=== PATIENT | female | born 1995 | race African-American/Black ===

== ENCOUNTER 2017-03-11 23:04 | Emergency (ER) | payer MEDICAID ==
[~2017-03-11] VITALS: Ht 162.6 cm; Wt 66.7 kg
[2017-03-11 23:05] VITALS: BP 127/88
== END 2017-03-11 23:20 ==
LOC: ED 23:13
DX: R30.0 Dysuria (principal); Z53.21 Procedure and treatment not carried out due to patient leaving prior to being seen by health care provider

== ENCOUNTER 2017-04-07 13:48 | Outpatient (CLI) | payer MEDICAID ==
[~2017-04-07] VITALS: Ht 162.6 cm; Wt 65.0 kg
[2017-04-07] MEDS ORDERED: ONDANSETRON 2MG/ML, 2ML IVPush PRN (15:30)
[2017-04-07] MEDS ORDERED: LACTATED RINGERS 1,000 ML IVBOLUS ONE (15:30)
[2017-04-07] MEDS ORDERED: ONDANSETRON 2MG/ML, 2ML ONE (15:31)
[2017-04-07] MEDS ORDERED: PLEASE ENTER HEIGHT AND WEIGHT MC SCH (16:00)
[2017-04-07] MEDS ORDERED: PROMETHAZINE 25MG TABLET PO PRN (17:00)
[2017-04-07] MEDS ORDERED: D5%-LACTATED RINGERS 1,000 ML IV SCH ×2 (17:00)
[2017-04-07] MEDS ORDERED: FLUCONAZOLE 100 MG TABLET PO ONE (17:00)
[2017-04-07] MEDS ORDERED: MISOPROSTOL 200 MCG TABLET ONE (18:00)
[2017-04-07 18:37] LABS: DAU SCREEN DISCLAIMER
[2017-04-07 18:45] LABS: PATH.CAST-FLAG NOT PRESENT; SPERM-FLAG NOT PRESENT; SRC-FLAG NOT PRESENT; XTAL-FLAG NOT PRESENT; YLC-FLAG NOT PRESENT
[2017-04-07 19:34] VITALS: BP 122/87
[2017-04-07] MEDS ORDERED: PROMETHAZINE 25 MG SUPP PR ONE (20:30)
[2017-04-10] MEDS ORDERED: PREN1TAB60 PO (09:33)
[2017-04-10] MEDS ORDERED: FLUC150T PO (19:24)
[2017-04-10] MEDS ORDERED: METO10TA82 PO (19:24)
== END 2017-04-07 21:36 | disposition home or self-care (01) ==
LOC: LDOP 13:48
PROVIDERS: ATTEND Student in an Organized Health Care Education/Training Program
DX: O26.893 Other specified pregnancy related conditions, third trimester (principal); O21.9 Vomiting of pregnancy, unspecified; R10.32 Left lower quadrant pain; R10.31 Right lower quadrant pain; Z3A.28 28 weeks gestation of pregnancy
CPT/HCPCS: 36415; 59025; 80307; 81001; 82731; 85025; 87086; 96360; 96361; 99211; J2405; J7120; G0463; J7121

== ENCOUNTER 2017-04-22 16:49 | Outpatient (CLI) | payer MEDICAID ==
[~2017-04-22] VITALS: Ht 162.6 cm; Wt 63.6 kg
[~2017-04-22 16:49] MED LIST: FLUC150T PO; METO10TA82 PO; PREN1TAB60 PO
[2017-04-22 17:18] LABS: DAU SCREEN DISCLAIMER
== END 2017-04-22 18:27 | disposition home or self-care (01) ==
LOC: LDOP 16:49
PROVIDERS: ATTEND Student in an Organized Health Care Education/Training Program
DX: O26.893 Other specified pregnancy related conditions, third trimester (principal); O98.313 Other infections with a predominantly sexual mode of transmission complicating pregnancy, third trimester; O98.813 Other maternal infectious and parasitic diseases complicating pregnancy, third trimester; R10.9 Unspecified abdominal pain; A56.8 Sexually transmitted chlamydial infection of other sites; B37.3 Candidiasis of vulva and vagina; Z3A.30 30 weeks gestation of pregnancy
CPT/HCPCS: 36415; 59025; 80307; 81001; 82731; 87086; 99211; G0463

== ENCOUNTER 2017-05-04 10:14 | Outpatient (CLI) | payer MEDICAID ==
[~2017-05-04] VITALS: Ht 162.6 cm; Wt 65.9 kg
[2017-05-04 10:30] VITALS: BP 113/63
[2017-05-04 11:31] LABS: DAU SCREEN DISCLAIMER
== END 2017-05-04 12:35 | disposition home or self-care (01) ==
LOC: LDOP 10:14
PROVIDERS: ATTEND Student in an Organized Health Care Education/Training Program
DX: O42.913 Preterm premature rupture of membranes, unspecified as to length of time between rupture and onset of labor, third trimester (principal); Z3A.33 33 weeks gestation of pregnancy
CPT/HCPCS: 59025; 76815; 80307; 81001; 89060; 99211; G0463; Q0114

== ENCOUNTER 2017-06-09 04:44 | Inpatient (IN) | payer MEDICAID ==
[~2017-06-09] VITALS: Ht 162.6 cm; Wt 69.0 kg
[2017-06-09] MEDS ORDERED: OXYTOCIN 30U/ 0.9% NaCL 500ML 500 ML IV ONE (04:49)
[2017-06-09] MEDS ORDERED: D5%-LACTATED RINGERS 1,000 ML IV SCH (04:49)
[2017-06-09] MEDS ORDERED: FENTANYL PF 100 MCG/2ML IV PRN (05:00)
[2017-06-09] MEDS ORDERED: FENTANYL PF 100 MCG/2ML IVPush PRN (05:00)
[2017-06-09] MEDS ORDERED: METOCLOPRAMIDE 5 MG/ML, 2ML IVPush PRN (05:00)
[2017-06-09] MEDS ORDERED: SODIUM CITRATE/CITRIC ACID 30 ML UDC PO PRN (05:00)
[2017-06-09] MEDS ORDERED: ONDANSETRON 2MG/ML, 2ML IVPush PRN ×2 (05:00→06:30)
[2017-06-09] MEDS ORDERED: TERBUTALINE 1 MG/ML, 1ML IVPush PRN (05:00)
[2017-06-09] MEDS: LACTATED RINGERS 1,000 ML IV SCH ×2 (05:08→05:50)
[2017-06-09] MEDS ORDERED: ONDANSETRON 2MG/ML, 2ML ONE (05:24)
[2017-06-09 05:31] LABS: DAU SCREEN DISCLAIMER
[2017-06-09] MEDS ORDERED: NEWBORN KIT ONE (05:39)
[2017-06-09] MEDS ORDERED: FENTANYL/BUPIV./NS/PF 250 ML EPIDCONT SCH (06:04)
[2017-06-09] MEDS ORDERED: LACTATED RINGERS 1,000 ML IV SCH (06:04)
[2017-06-09 06:20] LABS: ASPARTATE AMINO TRANSFERASE 31 U/L (15-37); BLOOD UREA NITROGEN 7 mg/dL (7-18)
[2017-06-09] MEDS ORDERED: LACTATED RINGERS 1,000 ML IVBOLUS PRN (06:30)
[2017-06-09] MEDS ORDERED: EPHEDRINE 50 MG/ML, 1ML IVPush PRN (06:30)
[2017-06-09] MEDS ORDERED: OXYTOCIN 30U/ 0.9% NaCL 500ML 500 ML ONE ×2 (06:43→10:47)
[2017-06-09] MEDS ORDERED: OXYTOCIN 30U/ 0.9% NaCL 500ML 500 ML IV PRN (09:02)
[2017-06-09] MEDS ORDERED: MISOPROSTOL 200 MCG TABLET PR ONE (09:30)
[2017-06-09] MEDS ORDERED: IBUPROFEN 600 MG TABLET ONE (09:46)
[2017-06-09] MEDS: IBUPROFEN 600 MG TABLET PO PRN ×3 (09:47→22:24)
[2017-06-09] MEDS ORDERED: CALCIUM CARBONATE 500 MG TAB.CHEW PO PRN (10:00)
[2017-06-09] MEDS ORDERED: MEASLES,MUMPS&RUBELLA VACC/PF 0.5 ML SQ-VACC PRN (10:00)
[2017-06-09] MEDS ORDERED: METOCLOPRAMIDE 5 MG/ML, 2ML IV PRN (10:00)
[2017-06-09] MEDS ORDERED: ONDANSETRON 2MG/ML, 2ML IV PRN (10:00)
[2017-06-09] MEDS ORDERED: BISACODYL 10 MG SUPP PR PRN (10:00)
[2017-06-09] MEDS ORDERED: METHYLERGONOVINE 0.2 MG/ML IM PRN (10:00)
[2017-06-09] MEDS ORDERED: RHOGAM FROM BLOOD BANK 1 NOTE EA IM/IV ONE (10:00)
[2017-06-09] MEDS ORDERED: CARBOPROST TROMETHAMINE 250 MCG/ML, 1ML IM PRN (10:00)
[2017-06-09] MEDS ORDERED: ACETAMINOPHEN 325 MG TABLET PO PRN ×2 (10:00)
[2017-06-09] MEDS ORDERED: MISOPROSTOL 200 MCG TABLET PR PRN (10:00)
[2017-06-09] MEDS ORDERED: GLYCERIN ADULT SUPP PR PRN (10:00)
[2017-06-09] MEDS ORDERED: DIPH,PERTUSS(ACELL),TET VAC/PF NC IM-VACC PRN (10:00)
[2017-06-09] MEDS ORDERED: MAGNESIUM HYDROXIDE 8%, 30ML UDC PO PRN (10:00)
[2017-06-09] MEDS: OXYTOCIN 30U/ 0.9% NaCL 500ML 500 ML IV SCH ×2 (10:49→19:40)
[2017-06-09 12:10] VITALS: BP 123/82
[2017-06-09 16:42] VITALS: BP 130/81
[2017-06-09 19:50] VITALS: BP 119/66
[2017-06-09] MEDS: HYDROcodone/APAP 5/325 TABLET PO PRN (22:24)
[2017-06-09] MEDS: DOCUSATE 100 MG CAPSULE PO PRN (22:24)
[2017-06-10 01:00] VITALS: BP 106/68
[2017-06-10] MEDS: HYDROcodone/APAP 5/325 TABLET PO PRN ×4 (04:11→16:50)
[2017-06-10] MEDS: IBUPROFEN 600 MG TABLET PO PRN ×3 (04:11→20:20)
[2017-06-10 04:20] VITALS: BP 124/80
[2017-06-10] MEDS: OXYTOCIN 30U/ 0.9% NaCL 500ML 500 ML IV SCH ×2 (05:40→15:40)
[2017-06-10 07:00] VITALS: BP 99/64
[2017-06-10] MEDS: DOCUSATE 100 MG CAPSULE PO PRN (08:24)
[2017-06-10] MEDS: PRENATAL VIT/IRON/FA 1 EACH TABLET PO SCH (08:24)
[2017-06-10] MEDS: HYDROcodone/APAP 10/325 MG TABLET PO PRN (20:19)
[2017-06-10 21:00] VITALS: BP 127/88
[2017-06-11] MEDS: OXYTOCIN 30U/ 0.9% NaCL 500ML 500 ML IV SCH (01:40)
[2017-06-11] MEDS: HYDROcodone/APAP 10/325 MG TABLET PO PRN (03:47)
[2017-06-11] MEDS: IBUPROFEN 600 MG TABLET PO PRN ×2 (03:50→11:29)
[2017-06-11 08:00] VITALS: BP 103/67
[2017-06-11] MEDS ORDERED: IBUP-1222 PO (09:14)
[2017-06-11] MEDS: PRENATAL VIT/IRON/FA 1 EACH TABLET PO SCH (11:29)
[2017-06-11] MEDS: DOCUSATE 100 MG CAPSULE PO PRN (11:30)
== END 2017-06-11 12:12 | disposition home or self-care (01) | DRG 775 ==
LOC: LDOP 04:44 → LDIP 04:58 → 2NW 11:36
PROVIDERS: ADMIT Student in an Organized Health Care Education/Training Program; ATTEND Student in an Organized Health Care Education/Training Program
PROC: 10E0XZZ Delivery of Products of Conception, External Approach (ICD-10-PCS; principal; 2017-06-09)
PROC: 0HQ9XZZ Repair Perineum Skin, External Approach (ICD-10-PCS; 2017-06-09)
PROC: 3E0R3CZ (ICD-10-PCS; 2017-06-09)
PROC: 00HU33Z Insertion of Infusion Device into Spinal Canal, Percutaneous Approach (ICD-10-PCS; 2017-06-09)
PROC: 10907ZC Drainage of Amniotic Fluid, Therapeutic from Products of Conception, Via Natural or Artificial Opening (ICD-10-PCS; 2017-06-09)
DX: O99.324 Drug use complicating childbirth (principal); O76 Abnormality in fetal heart rate and rhythm complicating labor and delivery; F12.90 Cannabis use, unspecified, uncomplicated; O69.81X0 Labor and delivery complicated by cord around neck, without compression, not applicable or unspecified; O77.0 Labor and delivery complicated by meconium in amniotic fluid; O70.0 First degree perineal laceration during delivery; Z87.891 Personal history of nicotine dependence; Z3A.37 37 weeks gestation of pregnancy; Z37.0 Single live birth
CPT/HCPCS: 36415; 80053; 80307; 81003; 82248; 84550; 85025; 86850; 86900; J2405; J2590; J7120

== ENCOUNTER 2018-09-11 16:36 | Emergency (ER) | payer SELFPAY ==
[~2018-09-11] VITALS: Ht 162.6 cm; Wt 69.0 kg
[~2018-09-11 16:36] MED LIST changes: +IBUP-1222 PO
[2018-09-11 16:57] VITALS: BP 128/93
[2018-09-11] MEDS ORDERED: IBUPROFEN 200 MG TABLET ONE (17:42)
[2018-09-11] MEDS ORDERED: IBUPROFEN 200 MG TABLET PO ONE (18:00)
== END 2018-09-11 17:57 | disposition home or self-care (01) ==
LOC: ED 17:34
DX: S39.012A Strain of muscle, fascia and tendon of lower back, initial encounter (principal); S29.019A Strain of muscle and tendon of unspecified wall of thorax, initial encounter; V49.59XA Passenger injured in collision with other motor vehicles in traffic accident, initial encounter; Y93.89 Activity, other specified; Y92.89 Other specified places as the place of occurrence of the external cause; Y99.8 Other external cause status
CPT/HCPCS: 72110; 99284

== ENCOUNTER 2020-04-07 19:40 | Emergency (ER) | payer MEDICAID, OTHER ==
[2020-04-07 21:14] VITALS: BP 110/74
== END 2020-04-07 21:48 ==
LOC: ED 21:42
DX: S16.1XXA Strain of muscle, fascia and tendon at neck level, initial encounter (principal); R51 Headache; V43.52XA Car driver injured in collision with other type car in traffic accident, initial encounter; Y93.89 Activity, other specified; Y92.488 Other paved roadways as the place of occurrence of the external cause; Y99.8 Other external cause status
CPT/HCPCS: 72050; 99283